=== PATIENT | female | born 1955 | race African-American/Black ===

== ENCOUNTER 2016-07-10 11:45 | Emergency (ER) | payer MEDICAID ==
[~2016-07-10] VITALS: Ht 180.3 cm; Wt 95.3 kg
[2016-07-10] MEDS ORDERED: PREMARIN0.3 MG ORAL (12:02)
[2016-07-10 12:05] VITALS: BP 129/75
[2016-07-10] MEDS ORDERED: Oxymetazoline 0.05% Na Spray 30ml NASAL ONE (12:15)
[2016-07-10 13:27] VITALS: BP 125/76
--- NOTE | 2016-07-10 14:24 | Emergency Room Report ---
History of Present Illness General Chief Complaint: Nosebleed Source: Patient Present Illness HPI 61-year-old female presents to ED with nose bleed. States the nosebleed started this morning, no trauma. Continued on and off until she arrived to emergency room when it finally stopped. Patient states she was applying pressure and tilted her head backwards. Denies any pain. Denies taking any blood thinners. Denies shortness of breath or airway obstruction. No aggravating relieving factors. Denies any other associated symptoms Allergies: Coded Allergies: SHELLFISH DERIVED (Verified Allergy, Unknown, 07/10/16) Patient History Past Medical History: none Past Surgical History: none Pertinent Family History: none Social History: Denies: alcohol use, drug use, smoking Now: No : 3 Para: 3 Immunizations: UTD Reviewed Nursing Documentation: PMH: Agreed, PSxH: Agreed Nursing Documentation-PMH Past Medical History: No Stated History Review of Systems All Other Systems: negative except mentioned in HPI Physical Exam Vital Signs Date Time Temp Pulse Resp B/P Pulse Ox O2 Delivery O2 Flow Rate FiO2 07/10/16 11:55 97.5 64 16 129/75 99 Room Air Sp02 EP Interpretation: reviewed, normal General Appearance: no apparent distress, alert, GCS 15, non-toxic Head: normocephalic Eyes: bilateral eye PERRL, bilateral eye normal inspection ENT: normal pharynx, no angioedema, normal voice, TMs + canals normal, uvula midline, other - L nares dried blood. no active bleeding Neck: full range of motion, supple/symm/no masses Respiratory: chest non-tender, lungs clear, normal breath sounds, speaking full sentences Cardiovascular #1: normal inspection Gastrointestinal: normal inspection Rectal: deferred Genitourinary: no CVA tenderness Musculoskeletal: normal inspection Neurologic: alert, oriented x3, responsive, motor strength/tone normal, sensory intact, speech normal Psychiatric: normal inspection Skin: normal inspection Lymphatic: normal inspection Medical Decision Making Diagnostic Impression: Primary Impression: Epistaxis ER Course 61-year-old female presents to ED with epistaxis from left nostril. No trauma Differential-anterior epistaxis, posterior epistaxis, coagulopathy Patient placed on stretcher. After initial history, physical exam reveals elderly female in no acute distress. There is no active bleeding on evaluation. Dried blood noted in the left nares. Patient is not taking any blood thinners. Patient is protecting her airway. I ordered some Afrin I applied into the left nostril. Patient observed for approximately one hour with no recurrence of epistaxis. Patient be safely discharged to home at this time. Diagnoses- epistaxis Stable and discharged to home. Followup with PMD/ENT. Return to ED if symptoms recur or worsen Last Vital Signs Date Time Temp Pulse Resp B/P Pulse Ox O2 Delivery O2 Flow Rate FiO2 07/10/16 13:27 68 16 125/76 99 Room Air 07/10/16 12:05 97.5 Status: improved Disposition: HOME, SELF-CARE Condition: Stable Referrals: [facility]ERR[facility] (PCP) Patient Instructions: [place]ose[place], Ipnj-io-Drgr LISA GANDHI M.D. Jul 10, 2016 14:24
== END 2016-07-10 13:30 | disposition home or self-care (01) ==
LOC: EMR 12:29
DX: R04.0 Epistaxis (principal); Z91.013 Allergy to seafood
CPT/HCPCS: 99283

== ENCOUNTER 2018-07-27 13:05 | Emergency (ER) | payer MEDICAID, OTHER ==
[~2018-07-27] VITALS: Ht 180.3 cm; Wt 95.3 kg
[~2018-07-27 13:05] MED LIST: PREMARIN0.3 MG ORAL
[2018-07-27] MEDS ORDERED: ZOCOR20 M1 ORAL (13:15)
[2018-07-27] MEDS ORDERED: SIMVASTATIN10 MG ORAL (13:15)
--- NOTE | 2018-07-27 13:25 | NUR ---
ED Nurse Note: Pt came in due to SOB upon exertion, coughing with phlegm x 3 days. Denies fever or chills. Pt is AAO x4, ambulatory with SOB upon exertion. Lung with wheezing upon auscultation. Dr Steele at the bed side.
[2018-07-27] MEDS ORDERED: Ipratropium 0.02% Inh Soln 2.5ml UD HHN ONE (13:30)
[2018-07-27] MEDS ORDERED: Albuterol ud Inhalation HHN ONE (13:30)
--- NOTE | 2018-07-27 14:05 | NUR ---
ED Nurse Note: Called RT to ff up with breathing treatment.
--- NOTE | 2018-07-27 14:14 | NUR ---
ED Nurse Note: RT at the bed side giving breathing treatment.
[2018-07-27] MEDS ORDERED: ALBUTEROL SULF8.5 GM INH (14:56)
[2018-07-27] MEDS ORDERED: PROMETHAZINE-C118 M1 ORAL (14:56)
[2018-07-27] MEDS ORDERED: PREDNISONE20 MG ORAL (14:56)
[2018-07-27 15:00] VITALS: BP 151/66
--- NOTE | 2018-07-27 15:00 | NUR ---
ER Nurse Note: Pt cleared for discharge by ER MD. DC instructions/prescription was gien and explained to pt and verbalized understanding of teachings. All medical devices such as ID band removed. Pt AAO x4, ambulatory and left with all personal belongings.
--- NOTE | 2018-07-28 07:52 | Emergency Room Report ---
History of Present Illness General Chief Complaint: Upper Respiratory Illness Source: Patient Present Illness HPI 63-year-old female presents ED for evaluation. Patient complaining of cough and wheezing 3 days. Cough is productive with greenish phlegm. Denies fevers chills. Denies sick contacts or recent travel. Notes history of asthma. No other aggravating relieving factors. Denies any other associated symptoms Allergies: Coded Allergies: SHELLFISH DERIVED (Verified Allergy, Unknown, 07/10/16) Patient History Past Medical History: asthma Past Surgical History: none Pertinent Family History: none Social History: Denies: smoking, alcohol use, drug use Now: No Immunizations: UTD Reviewed Nursing Documentation: PMH: Agreed; PSxH: Agreed Nursing Documentation-PMH Past Medical History: No History, Except For Hx Asthma: Yes Review of Systems All Other Systems: negative except mentioned in HPI Physical Exam Vital Signs Date Time Temp Pulse Resp B/P (MAP) Pulse Ox O2 Delivery O2 Flow Rate FiO2 07/27/18 13:12 98.4 59 14 128/70 99 Room Air 07/27/18 14:16 21 Sp02 EP Interpretation: reviewed, normal General Appearance: no apparent distress, alert, GCS 15, non-toxic Head: normocephalic Eyes: bilateral eye normal inspection, bilateral eye PERRL ENT: normal ENT inspection Neck: normal inspection Respiratory: wheezing Cardiovascular #1: regular rate, rhythm, no edema Gastrointestinal: normal inspection Rectal: deferred Genitourinary: no CVA tenderness Musculoskeletal: normal inspection Neurologic: alert, oriented x3, responsive, motor strength/tone normal, sensory intact, speech normal Psychiatric: normal inspection Skin: normal inspection Lymphatic: normal inspection Medical Decision Making Diagnostic Impression: Primary Impression: Bronchitis ER Course Hospital Course 63-year-old female presents to ED complaining of cough, wheezing Differential diagnoses include: URI, bronchitis, asthma/COPD, pneumonia Clinical course Patient placed on stretcher. After initial history and physical I ordered prednisone and nebulizer treatment. Upon reassessment patient states cough and symptoms have improved. Findings consistent with bronchitis. Discussed findings with patient. Safe for discharge close outpatient follow- up. we will prescribe inhaler, steroids, cough medication. States she has a PMD Diagnosis - bronchitis Stable and discharged home with prescriptions for Rx prednisone, promethazine/ codeine, albuterol. Instructed to followup with PMD. Return to ED if symptoms recur or worsen Last Vital Signs Date Time Temp Pulse Resp B/P (MAP) Pulse Ox O2 Delivery O2 Flow Rate FiO2 07/27/18 15:00 97.9 82 18 151/66 100 Room Air 07/27/18 14:33 21 Status: improved Disposition: HOME, SELF-CARE Condition: Stable Scripts Codeine/Promethazine Hcl* (PROMETHAZINE-CODEINE SYRUP*) 118 Ml Syrup 5 ML ORAL Q6H PRN for For Cough, #118 ML 0 Refills Prov: Ross Steele MD 07/27/18 Albuterol Sulfate* (ALBUTEROL SULFATE MDI*) 8.5 Gm Hfa.aer.ad 2 PUFF INH Q6H, #1 EA 0 Refills Prov: Ross Steele MD 07/27/18 Prednisone* (PREDNISONE*) 20 Mg Tablet 40 MG ORAL DAILY, #10 TAB Prov: Ross Steele MD 07/27/18 Referrals: [facility]/,REFERRING (PCP) Patient Instructions: Acute Bronchitis, [id number] Ross Steele MD Jul 28, 2018 07:52
== END 2018-07-27 15:00 | disposition home or self-care (01) ==
LOC: EMR 13:25
DX: J45.909 Unspecified asthma, uncomplicated (principal); Z91.013 Allergy to seafood
CPT/HCPCS: 94640; 94664; 99284; J7512